=== PATIENT | female | born 1990 | race Caucasian/White ===

== ENCOUNTER 2018-05-24 11:21 | Emergency (ER) | payer BC ==
[2018-05-24] MEDS ORDERED: Ondansetron 4 MG/2 ML SDV IVPUSH ONE ×2 (12:24→14:52)
[2018-05-24] MEDS ORDERED: Sodium Chloride 0.9% 1,000 ML IV ONE ×2 (12:24→13:53)
[2018-05-24] MEDS ORDERED: Sodium Chloride 0.9% 10 ML Syringe FLUSH PRN (12:24)
[2018-05-24] MEDS ORDERED: Famotidine 20 MG/2 ML SDV IVPUSH ONE (12:32)
[2018-05-24] MEDS ORDERED: Alum Hydrox/Mag Hydrox/Simeth 30 ML, Lidocaine 2% 15 ML PO ONE ×2 (12:32)
--- NOTE | 2018-05-24 12:37 | EDM.PDOC ---
ED HPI GENERAL MEDICAL PROBLEM - General Chief Complaint: Gastrointestinal Problem Stated Complaint: VOMITING AND CHILLS Time Seen by Provider: 05/24/18 12:16 Source of Information: Reports: Patient History Limitations: Reports: No Limitations - History of Present Illness INITIAL COMMENTS - FREE TEXT/NARRATIVE: 28-year-old female presents for evaluation and treatment of nausea, vomiting and chills. Reports symptoms started last night. She said at first she felt like she had reflux. Reports that she was burping. She then appreciated burning to her esophagus and again vomiting. She states that she took a Prilosec went to bed which seemed to help with her symptoms. She reports morning she was very hot to touch. She did not take her temperature but states she felt chilled and continued to vomit. She has also had about 2 episodes of nonbloody loose stools today. She is having some abdominal cramping across her upper midabdomen. States that she cannot keep down any foods or fluids. She denies any ear pain, headache or sore throat. States that she was coughing yesterday due to all the vomiting. She denies any recent travel. No ill contacts. No antibiotics recently. LMP was several years ago. Reports that she has the Mirena IUD. Abdomen Pain Score (Numeric/FACES): 1 - Related Data Allergies Allergy/AdvReac Type Severity Reaction Status Date / Time azithromycin [From Zithromax] Allergy Vomiting Verified 05/24/18 11:42 fluoxetine HCl [From Prozac] Allergy Airway Verified 05/24/18 11:42 Tightness flu shot Allergy Airway Uncoded 05/24/18 11:42 Tightness Home Meds: Home Meds ZOLMitriptan [Zomig] 5 mg PO DAILY PRN 09/22/14 [History] ALPRAZolam [Alprazolam] 0.25 mg PO Q6H PRN 11/11/16 [History] Levonorgestrel [Mirena] 1 each IY ASDIRECTED 11/11/16 [History] Magnesium Oxide 250 mg PO DAILY #7 tablet 05/24/18 [Rx] Potassium Chloride [Klor-Con M20] 20 meq PO DAILY #7 tab.er 05/24/18 [Rx] traZODone HCl [Trazodone HCl] 100 mg PO BEDTIME 05/24/18 [History] Past Medical History - Past Health History Medical/Surgical History: Denies Medical/Surgical History Genitourinary History: Reports: Renal Calculus Neurological History: Reports: Migraines Psychiatric History: Reports: Anxiety - Past Surgical History GI Surgical History: Reports: Appendectomy Social & Family History - Family History Family Medical History: Noncontributory Neurological: Reports: Migraines - Tobacco Use Smoking Status *Q: Never Smoker - Caffeine Use Caffeine Use: Reports: None - Recreational Drug Use Recreational Drug Use: No - Living Situation & Occupation Living situation: Reports: Single, with Significant Other Occupation: Employed ED ROS GENERAL - Review of Systems Review Of Systems: See Below Constitutional: Reports: Fever, Chills, Malaise HEENT: Denies: Ear Pain, Throat Pain Respiratory: Reports: Cough GI/Abdominal: Reports: Abdominal Pain, Diarrhea (x2), Nausea, Vomiting. Denies : Bloody Stool : Denies: Dysuria Musculoskeletal: Denies: Back Pain ED EXAM, GI/ABD - Physical Exam Exam: See Below Exam Limited By: No Limitations General Appearance: Alert, WD/WN, No Apparent Distress Ears: Normal External Exam Nose: Normal Inspection Throat/Mouth: Normal Inspection, Normal Lips, Normal Voice, No Airway Compromise Respiratory/Chest: No Respiratory Distress, Lungs Clear, Normal Breath Sounds Cardiovascular: Normal Peripheral Pulses, Regular Rate, Rhythm, No Murmur GI/Abdominal Exam: Normal Bowel Sounds, Soft, Non-Tender, No Distention Neurological: Alert, Oriented, Normal Cognition Psychiatric: Normal Affect, Normal Mood Skin Exam: Warm, Dry, Normal Color Course - Vital Signs Last Recorded V/S: Last Vital Signs Temp 97.1 F 05/24/18 11:39 Pulse 86 05/24/18 11:39 Resp 16 05/24/18 17:30 BP 118/86 05/24/18 17:30 Pulse Ox 97 05/24/18 17:30 - Orders/Labs/Meds Orders: Active Orders 24 hr Category Date Time Status Peripheral IV Care [RC] . DIRECTED Care 05/24/18 12:24 Active DRUG SCREEN, URINE [URCHEM] Stat Lab 05/24/18 13:48 Ordered HEPATITIS PANEL (4) [REF] Stat Lab 05/24/18 14:12 Received UA W/MICROSCOPIC [URIN] Stat Lab 05/24/18 13:53 Ordered Peripheral IV Insertion Adult [OM.PC] Routine Oth 05/24/18 12:23 Ordered Labs: Laboratory Tests 05/24/18 05/24/18 05/24/18 Range/Units 12:36 12:36 12:36 WBC 5.02 (3.98-10.04) K/mm3 RBC 3.99 (3.98-5.22) M/mm3 Hgb 15.1 (11.2-15.7) gm/L Hct 42.0 (34.1-44.9) % MCV 105.3 H (79.4-94.8) fl MCH 37.8 H (25.6-32.2) pg MCHC 36.0 H (32.2-35.5) g/dl RDW Std Deviation 48.7 H (36.4-46.3) fL Plt Count 156 L (182-369) K/mm3 MPV 11.1 (9.4-12.3) fl Neut % (Auto) 78.4 H (34.0-71.1) % Lymph % (Auto) 9.6 L (19.3-51.7) % [place] % (Auto) 11.2 (4.7-12.5) % Eos % (Auto) 0.2 L (0.7-5.8) Baso % (Auto) 0.6 (0.1-1.2) % Neut # (Auto) 3.94 (1.56-6.13) K/mm3 Lymph # (Auto) 0.48 L (1.18-3.74) K/mm3 [place] # (Auto) 0.56 H (0.24-0.36) K/mm3 Eos # (Auto) 0.01 L (0.04-0.36) K/mm3 Baso # (Auto) 0.03 (0.01-0.08) K/mm3 Manual Slide Review Abnormal smear Sodium 138 (136-145) mEq/L Potassium 2.4 L* (3.5-5.1) mEq/L Chloride 94 L (98-107) mEq/L Carbon Dioxide 29 (21-32) mEq/L Anion Gap 17.4 H (5-15) BUN 8 (7-18) mg/dL Creatinine 0.8 (0.55-1.02) mg/dL Est Cr Clr Drug Dosing 103.01 mL/min Estimated GFR (MDRD) > 60 (>60) mL/min BUN/Creatinine Ratio 10.0 L (14-18) Glucose 118 H (74-106) mg/dL Calcium 9.7 (8.5-10.1) mg/dL Magnesium (1.8-2.4) mg/dl Total Bilirubin 3.0 H (0.2-1.0) mg/dL AST 362 H (15-37) U/L ALT 156 H (14-59) U/L Alkaline Phosphatase 119 H (46-116) U/L C-Reactive Protein (<1.0) mg/dL Total Protein 7.7 (6.4-8.2) g/dl Albumin 4.2 (3.4-5.0) g/dl Globulin 3.5 gm/dL Albumin/Globulin Ratio 1.2 (1-2) HCG, Qual Negative (NEGATIVE) Urine Color (Yellow) Urine Appearance (Clear) Urine pH (5.0-8.0) Ur Specific [place] (1.005-1.030) Urine Protein (Negative) Urine Glucose (UA) (Negative) Urine Ketones (Negative) Urine Occult Blood (Negative) Urine Nitrite (Negative) Urine Bilirubin (Negative) Urine Urobilinogen (0.2-1.0) Ur Leukocyte Esterase (Negative) Urine RBC (0-5) /hpf Urine WBC (0-5) /hpf Ur Epithelial Cells (0-5) /hpf Urine Bacteria (FEW) /hpf Urine Mucus (FEW) /hpf Urine Opiates Screen (NEGATIVE) Ur Buprenorphine Scrn (NEGATIVE) Ur Oxycodone Screen (NEGATIVE) Urine Methadone Screen (NEGATIVE) Ur Propoxyphene Screen (NEGATIVE) Ur Barbiturates Screen (NEGATIVE) Ur Tricyclics Screen (NEGATIVE) Ur Phencyclidine Scrn (NEGATIVE) Ur Amphetamine Screen (NEGATIVE) U Methamphetamines Scrn (NEGATIVE) U Benzodiazepines Scrn (NEGATIVE) U Cocaine Metab Screen (NEGATIVE) U Marijuana (THC) Screen (NEGATIVE) Ethyl Alcohol (0.00) gm% 05/24/18 05/24/18 05/24/18 Range/Units 12:36 12:36 12:36 WBC (3.98-10.04) K/mm3 RBC (3.98-5.22) M/mm3 Hgb (11.2-15.7) gm/L Hct (34.1-44.9) % MCV (79.4-94.8) fl MCH (25.6-32.2) pg MCHC (32.2-35.5) g/dl RDW Std Deviation (36.4-46.3) fL Plt Count (182-369) K/mm3 MPV (9.4-12.3) fl Neut % (Auto) (34.0-71.1) % Lymph % (Auto) (19.3-51.7) % [place] % (Auto) (4.7-12.5) % Eos % (Auto) (0.7-5.8) Baso % (Auto) (0.1-1.2) % Neut # (Auto) (1.56-6.13) K/mm3 Lymph # (Auto) (1.18-3.74) K/mm3 [place] # (Auto) (0.24-0.36) K/mm3 Eos # (Auto) (0.04-0.36) K/mm3 Baso # (Auto) (0.01-0.08) K/mm3 Manual Slide Review Sodium (136-145) mEq/L Potassium 3.3 L (3.5-5.1) mEq/L Chloride (98-107) mEq/L Carbon Dioxide (21-32) mEq/L Anion Gap (5-15) BUN (7-18) mg/dL Creatinine (0.55-1.02) mg/dL Est Cr Clr Drug Dosing mL/min Estimated GFR (MDRD) (>60) mL/min BUN/Creatinine Ratio (14-18) Glucose (74-106) mg/dL Calcium (8.5-10.1) mg/dL Magnesium 1.5 L (1.8-2.4) mg/dl Total Bilirubin (0.2-1.0) mg/dL AST (15-37) U/L ALT (14-59) U/L Alkaline Phosphatase (46-116) U/L C-Reactive Protein (<1.0) mg/dL Total Protein (6.4-8.2) g/dl Albumin (3.4-5.0) g/dl Globulin gm/dL Albumin/Globulin Ratio (1-2) HCG, Qual (NEGATIVE) Urine Color (Yellow) Urine Appearance (Clear) Urine pH (5.0-8.0) Ur Specific [place] (1.005-1.030) Urine Protein (Negative) Urine Glucose (UA) (Negative) Urine Ketones (Negative) Urine Occult Blood (Negative) Urine Nitrite (Negative) Urine Bilirubin (Negative) Urine Urobilinogen (0.2-1.0) Ur Leukocyte Esterase (Negative) Urine RBC (0-5) /hpf Urine WBC (0-5) /hpf Ur Epithelial Cells (0-5) /hpf Urine Bacteria (FEW) /hpf Urine Mucus (FEW) /hpf Urine Opiates Screen (NEGATIVE) Ur Buprenorphine Scrn (NEGATIVE) Ur Oxycodone Screen (NEGATIVE) Urine Methadone Screen (NEGATIVE) Ur Propoxyphene Screen (NEGATIVE) Ur Barbiturates Screen (NEGATIVE) Ur Tricyclics Screen (NEGATIVE) Ur Phencyclidine Scrn (NEGATIVE) Ur Amphetamine Screen (NEGATIVE) U Methamphetamines Scrn (NEGATIVE) U Benzodiazepines Scrn (NEGATIVE) U Cocaine Metab Screen (NEGATIVE) U Marijuana (THC) Screen (NEGATIVE) Ethyl Alcohol 0.00 (0.00) gm% 05/24/18 05/24/18 05/24/18 Range/Units 12:55 13:48 13:53 WBC (3.98-10.04) K/mm3 RBC (3.98-5.22) M/mm3 Hgb (11.2-15.7) gm/L Hct (34.1-44.9) % MCV (79.4-94.8) fl MCH (25.6-32.2) pg MCHC (32.2-35.5) g/dl RDW Std Deviation (36.4-46.3) fL Plt Count (182-369) K/mm3 MPV (9.4-12.3) fl Neut % (Auto) (34.0-71.1) % Lymph % (Auto) (19.3-51.7) % [place] % (Auto) (4.7-12.5) % Eos % (Auto) (0.7-5.8) Baso % (Auto) (0.1-1.2) % Neut # (Auto) (1.56-6.13) K/mm3 Lymph # (Auto) (1.18-3.74) K/mm3 [place] # (Auto) (0.24-0.36) K/mm3 Eos # (Auto) (0.04-0.36) K/mm3 Baso # (Auto) (0.01-0.08) K/mm3 Manual Slide Review Sodium (136-145) mEq/L Potassium (3.5-5.1) mEq/L Chloride (98-107) mEq/L Carbon Dioxide (21-32) mEq/L Anion Gap (5-15) BUN (7-18) mg/dL Creatinine (0.55-1.02) mg/dL Est Cr Clr Drug Dosing mL/min Estimated GFR (MDRD) (>60) mL/min BUN/Creatinine Ratio (14-18) Glucose (74-106) mg/dL Calcium (8.5-10.1) mg/dL Magnesium (1.8-2.4) mg/dl Total Bilirubin (0.2-1.0) mg/dL AST (15-37) U/L ALT (14-59) U/L Alkaline Phosphatase (46-116) U/L C-Reactive Protein < 0.2 (<1.0) mg/dL Total Protein (6.4-8.2) g/dl Albumin (3.4-5.0) g/dl Globulin gm/dL Albumin/Globulin Ratio (1-2) HCG, Qual (NEGATIVE) Urine Color Yellow (Yellow) Urine Appearance Clear (Clear) Urine pH 7.5 (5.0-8.0) Ur Specific [place] 1.010 (1.005-1.030) Urine Protein Negative (Negative) Urine Glucose (UA) Negative (Negative) Urine Ketones Negative (Negative) Urine Occult Blood Negative (Negative) Urine Nitrite Negative (Negative) Urine Bilirubin Negative (Negative) Urine Urobilinogen 2.0 H (0.2-1.0) Ur Leukocyte Esterase Negative (Negative) Urine RBC Not seen (0-5) /hpf Urine WBC 0-5 (0-5) /hpf Ur Epithelial Cells 0-5 (0-5) /hpf Urine Bacteria Few (FEW) /hpf Urine Mucus Not seen (FEW) /hpf Urine Opiates Screen Negative (NEGATIVE) Ur Buprenorphine Scrn Negative (NEGATIVE) Ur Oxycodone Screen Negative (NEGATIVE) Urine Methadone Screen Negative (NEGATIVE) Ur Propoxyphene Screen Negative (NEGATIVE) Ur Barbiturates Screen Negative (NEGATIVE) Ur Tricyclics Screen Negative (NEGATIVE) Ur Phencyclidine Scrn Negative (NEGATIVE) Ur Amphetamine Screen Negative (NEGATIVE) U Methamphetamines Scrn Negative (NEGATIVE) U Benzodiazepines Scrn Presumptive positive H (NEGATIVE) U Cocaine Metab Screen Negative (NEGATIVE) U Marijuana (THC) Screen Presumptive positive H (NEGATIVE) Ethyl Alcohol (0.00) gm% Meds: Medications Discontinued Medications Generic Name Dose Route Start Last Admin Trade Name Freq PRN Reason Stop Dose Admin Al Hydroxide/Mg Hydroxide 30 0 ml 05/24/18 12:32 05/24/18 12:43 ml/ Lidocaine HCl 15 ml PO 05/24/18 12:33 45 ml ONETIME ONE Administration Famotidine 20 mg 05/24/18 12:32 05/24/18 12:43 Pepcid IVPUSH 05/24/18 12:33 20 mg ONETIME ONE Administration Sodium Chloride 1,000 mls @ 999 mls/hr 05/24/18 12:24 05/24/18 12:42 Normal Saline IV 05/24/18 13:24 999 mls/hr ONETIME ONE Administration Magnesium Sulfate 2 gm/ Premix 50 mls @ 50 mls/hr 05/24/18 13:40 05/24/18 14: 07 IV 05/24/18 14:39 50 mls/hr ONETIME ONE Administration Sodium Chloride 1,000 mls @ 999 mls/hr 05/24/18 13:53 05/24/18 14:07 Normal Saline IV 05/24/18 14:53 999 mls/hr ONETIME ONE Administration Potassium Chloride 10 meq/ 100 mls @ 100 mls/hr 05/24/18 14:30 05/24/18 14:47 Premix IV 100 mls/hr ASDIRECTED JESU Administration Ondansetron HCl 4 mg 05/24/18 12:24 05/24/18 12:43 Zofran IVPUSH 05/24/18 12:25 4 mg ONETIME ONE Administration Ondansetron HCl 4 mg 05/24/18 14:52 05/24/18 15:12 Zofran IVPUSH 05/24/18 14:53 4 mg ONETIME ONE Administration Potassium Chloride 40 meq 05/24/18 13:53 05/24/18 14:08 Klor-Con M20 PO 05/24/18 13:54 40 meq ONETIME ONE Administration Sodium Chloride 10 ml 05/24/18 12:24 05/24/18 12:44 Saline Flush FLUSH 10 ml ASDIRECTED PRN Administration Keep Vein Open - Re-Assessments/Exams Free Text/Narrative Re-Assessment/Exam: 05/24/18 14:01 Reviewed the labs with the patient. She states she occasionally drinks alcohol and she last had some on Thursday night. She denies taking excessive amounts of Tylenol. Denies any IV drug abuse or any known history of any hepatitis. Parents this point she reports her nausea has improved and she is feeling better. Will get her second liter of fluids, IV magnesium and some by mouth and IV potassium. We'll then reassess and see if she is able to go home at that time. I suspect that she is drinking alcohol and is not being honest with me about her alcohol consumption. 05/24/18 17:17 Repeat potassium has returned at 3.3 Will discharge home today with close follow-up in the clinic. Recommend clear fluids and a bland diet. Avoid tylenol. Avoid alcohol. Discharge instructions as documented. Departure - Departure Time of Disposition: 17:18 Disposition: Home, Self-Care 01 Condition: Fair Clinical Impression: Hypomagnesemia, Hypokalemia, Elevated transaminase level - Discharge Information *PRESCRIPTION DRUG MONITORING PROGRAM REVIEWED*: No *COPY OF PRESCRIPTION DRUG MONITORING REPORT IN PATIENT ANASTASIA: No Prescriptions: Magnesium Oxide 250 mg PO DAILY #7 tablet Potassium Chloride [Klor-Con M20] 20 meq PO DAILY #7 tab.er Instructions: Hypomagnesemia, Hypokalemia Referrals: Simin Paiz NP [Primary Care Provider] - Forms: ED Department Discharge Additional Instructions: Take your Zofran you have at home as prescribed. Recommend clear fluids and a bland diet as tolerated. Patrick Diet recommendations include bread, rice, applesauce, toast, bananas, yogurt, etc. Take the magnesium as prescribed. you were given both magnesium and potassium in the ED tonight. You may start this prescription tomorrow. Magnesium 1 tab daily. Potassium 1 tab daily. Follow up with your primary care provider the end of this week or early next week for rec of your symptoms, electrolytes and liver enzymes. Avoid Tylenol. Avoid alcohol. Please return to the ER if your symptoms change or worsen. - My Orders Last 24 Hours: My Active Orders 05/24/18 12:23 Peripheral IV Insertion Adult [OM.PC] Routine 05/24/18 12:24 Peripheral IV Care [RC] . DIRECTED 05/24/18 13:48 DRUG SCREEN, URINE [URCHEM] Stat 05/24/18 13:53 UA W/MICROSCOPIC [URIN] Stat 05/24/18 14:12 HEPATITIS PANEL (4) [REF] Stat - Assessment/Plan Last 24 Hours: My Active Orders 05/24/18 12:23 Peripheral IV Insertion Adult [OM.PC] Routine 05/24/18 12:24 Peripheral IV Care [RC] . DIRECTED 05/24/18 13:48 DRUG SCREEN, URINE [URCHEM] Stat 05/24/18 13:53 UA W/MICROSCOPIC [URIN] Stat 05/24/18 14:12 HEPATITIS PANEL (4) [REF] Stat
[2018-05-24] MEDS ORDERED: Magnesium Sulfate/Water 2 GM in Premix Bag 1 BAG IV ONE (13:40)
[2018-05-24] MEDS ORDERED: Potassium Chloride 20 MEQ Tab.ER PO ONE (13:53)
[2018-05-24] MEDS ORDERED: Potassium Chloride 10 MEQ in Premix Bag 1 BAG IV SCH (14:30)
[2018-05-24 17:33] VITALS: BP 118/86
== END 2018-05-24 17:40 | disposition home or self-care (01) ==
LOC: JD.ED 11:21
DX: E83.42 Hypomagnesemia (principal); E87.6 Hypokalemia; R79.89 Other specified abnormal findings of blood chemistry; Z79.899 Other long term (current) drug therapy; Z88.7 Allergy status to serum and vaccine; Z88.8 Allergy status to other drugs, medicaments and biological substances; Z88.1 Allergy status to other antibiotic agents
CPT/HCPCS: 36415; 80053; 80074; 80306; 81001; 83735; 84132; 84703; 85025; 86140; 96361; 96365; 96367; 96375; 96376; 99284; A9270; G0480; J2405; J3480; J3490; J7040; J7050; J3475

== ENCOUNTER 2019-04-02 20:12 | Emergency (ER) | payer BC ==
--- NOTE | 2019-04-02 20:59 | EDM.PDOC ---
ED HPI GENERAL MEDICAL PROBLEM - General Chief Complaint: ENT Problem Stated Complaint: EAR PAIN Time Seen by Provider: 04/02/19 20:40 Source of Information: Reports: Patient, RN Notes Reviewed History Limitations: Reports: No Limitations - History of Present Illness INITIAL COMMENTS - FREE TEXT/NARRATIVE: Patient is a 28 year old female who presents to the ED for the evaluation of bilateral ear fullness. She notes this to have started at around 4 PM today. She states that her left ear feels more full than the right. She states that it felt as if she was listening through a fish bowl. She notes there was some hot/itchy feeling inside her head with the increased pressure. She also has developed a scratchy throat. She denies any cough, fever/chills, or shortness of breath. Bilateral Ear Pain Score (Numeric/FACES): 4 - Related Data Allergies Allergy/AdvReac Type Severity Reaction Status Date / Time azithromycin [From Zithromax] Allergy Vomiting Verified 05/24/18 11:42 fluoxetine HCl [From Prozac] Allergy Airway Verified 05/24/18 11:42 Tightness flu shot Allergy Airway Uncoded 05/24/18 11:42 Tightness Home Meds: Home Meds ZOLMitriptan [Zomig] 5 mg PO DAILY PRN 09/22/14 [History] ALPRAZolam [Alprazolam] 0.25 mg PO Q6H PRN 11/11/16 [History] Levonorgestrel [Mirena] 1 each IY ASDIRECTED 11/11/16 [History] Magnesium Oxide 250 mg PO DAILY #7 tablet 05/24/18 [Rx] Potassium Chloride [Klor-Con M20] 20 meq PO DAILY #7 tab.er 05/24/18 [Rx] traZODone HCl [Trazodone HCl] 100 mg PO BEDTIME 05/24/18 [History] Past Medical History - Past Health History Medical/Surgical History: Denies Medical/Surgical History Genitourinary History: Reports: Renal Calculus 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 Uterine Bleeding Neurological History: Reports: Migraines Psychiatric History: Reports: Anxiety - Past Surgical History GI Surgical History: Reports: Appendectomy Social & Family History - Family History Family Medical History: Noncontributory Neurological: Reports: Migraines - Tobacco Use Smoking Status *Q: Current Every Day Smoker Years of Tobacco use: 8 Packs/Tins Daily: 0.5 - Caffeine Use Caffeine Use: Reports: None - Living Situation & Occupation Living situation: Reports: Single, with Significant Other Occupation: Employed ED ROS ENT - Review of Systems Review Of Systems: See Below Constitutional: Denies: Fever, Chills HEENT: Reports: Ear Pain (bilateral ear fullness), Throat Pain (scratchy throat) . Denies: Sinus Problem Respiratory: Reports: No Symptoms Cardiovascular: Reports: No Symptoms Endocrine: Reports: No Symptoms GI/Abdominal: Reports: No Symptoms : Reports: No Symptoms Musculoskeletal: Reports: No Symptoms Skin: Reports: No Symptoms Neurological: Reports: No Symptoms Psychiatric: Reports: No Symptoms Hematologic/Lymphatic: Reports: No Symptoms ED EXAM, ENT - Physical Exam Exam: See Below Exam Limited By: No Limitations General Appearance: Alert, WD/WN, No Apparent Distress Ears: Normal External Exam, Normal Canal, Hearing Grossly Normal, Normal TMs Mouth/Throat: Normal Inspection, Normal Gums, Normal Lips, Normal Oropharynx, Normal Teeth Head: Atraumatic, Normocephalic Neck: Normal Inspection, Supple, Non-Tender, Full Range of Motion Respiratory/Chest: No Respiratory Distress, Lungs Clear, Normal Breath Sounds, No Accessory Muscle Use, Chest Non-Tender Cardiovascular: Normal Peripheral Pulses, Regular Rate, Rhythm, No Murmur Extremities: Normal Inspection, Normal Capillary Refill Neurological: Alert, Oriented, Normal Cognition, No Motor/Sensory Deficits Psychiatric: Normal Affect, Normal Mood Skin: Warm, Dry, Intact, Normal Color, No Rash Course - Vital Signs Last Recorded V/S: Last Vital Signs Temp 99.0 F 04/02/19 20:35 Pulse 109 H 04/02/19 20:35 Resp 16 04/02/19 20:35 BP Pulse Ox 98 04/02/19 20:35 - Re-Assessments/Exams Free Text/Narrative Re-Assessment/Exam: 04/02/19 21:10 Patient presents to the ED for evaluation of bilateral ear fullness. Her exam is most consistent with a viral upper respiratory infection at this time, as there is no sign of any sort of bacterial infection. Have given general recommendations and will discharge home. Departure - Departure Time of Disposition: 21:10 Disposition: Home, Self-Care 01 Condition: Fair Clinical Impression: Viral upper respiratory infection - Discharge Information *PRESCRIPTION DRUG MONITORING PROGRAM REVIEWED*: No *COPY OF PRESCRIPTION DRUG MONITORING REPORT IN PATIENT ANASTASIA: No Instructions: Viral Respiratory Infection, [id number] Referrals: Simin Torre NP [Primary Care Provider] - Forms: ED Department Discharge, ED Return to Work/School Form Additional Instructions: You have been evaluated in the ED today for your ear fullness and scratchy throat. This is likely a viral illness in etiology. Please increase your fluid intake. Get plenty of rest as well. You should feel better in a few days. Recommend that you take some [id number] nasal decongestants, cough/cold remedies to combat this. Medicines like NyQuil, DayQuil, phenylephrine and other sinus decongestants are adequate. If your symptoms are not better in one week's time recommend that you follow up in a clinic or your primary care provider. Please return to the ED if your symptoms change or worsen.
== END 2019-04-02 21:30 | disposition home or self-care (01) ==
LOC: JD.ED 20:12
DX: J06.9 Acute upper respiratory infection, unspecified (principal); F41.9 Anxiety disorder, unspecified; F17.210 Nicotine dependence, cigarettes, uncomplicated; Z88.1 Allergy status to other antibiotic agents; Z88.8 Allergy status to other drugs, medicaments and biological substances; Z88.7 Allergy status to serum and vaccine; Z79.899 Other long term (current) drug therapy
CPT/HCPCS: 99282

== ENCOUNTER 2025-03-24 20:03 | Emergency (ER) | payer BC ==
[2025-03-24 20:11] VITALS: BP 145/107; PULSE 118
[2025-03-24 20:50] LABS: BASOPHILS ABSOLUTE AUTO 0.1 K/mm3 (0.0-0.2); BASOPHILS PERCENT AUTO 0.7 % (0.0-1.0); EOSINOPHILS PERCENT AUTO 0.3 % (0.0-6.0); HEMOGLOBIN 17.5 gm/dl (12.0-16.0); IMMATURE GRAN ABSOLUTE AUTO 0.01 K/mm3 (0.00-0.05); IMMATURE GRAN PERCENT AUTO 0.1 % (0.0-0.4); LYMPHOCYTES ABSOLUTE AUTO 2.2 K/mm3 (1.0-4.8); LYMPHOCYTES PERCENT AUTO 29.2 % (24.0-44.0); MEAN CORPUSCULAR HEMOGLOBIN 34.4 pg (28.0-32.0); MEAN CORPUSCULAR HGB CONC 35.7 g/dl (32.0-36.0); MEAN CORPUSCULAR VOLUME 96.3 fl (83.0-99.0); MEAN PLATELET VOLUME 9.4 fl (9.4-12.3); MONOCYTES ABSOLUTE AUTO 0.6 K/mm3 (0.0-0.8); MONOCYTES PERCENT AUTO 7.2 % (0.0-8.0); NEUTROPHILS ABSOLUTE AUTO 4.8 K/mm3 (1.8-7.7); NEUTROPHILS PERCENT AUTO 62.5 % (41.0-71.0); PLATELET COUNT,PLT 359 K/mm3 (150-400); RED BLOOD CELL COUNT 5.09 M/mm3 (4.10-5.30); WHITE BLOOD CELL COUNT,WBC 7.67 K/mm3 (3.9-11.3)
[2025-03-24] MEDS: Sodium Chloride 0.9% 1,000 ML IV ONE ×2 (20:57→23:17)
[2025-03-24] MEDS: diphenhydrAMINE 50 MG/ML SDV IVPUSH ONE (20:57)
[2025-03-24] MEDS: droPERidol 2.5 MG/ML SDV IV ONE (20:57)
[2025-03-24] MEDS: Sodium Chloride 0.9% 10 ML Syringe FLUSH PRN (21:09)
[2025-03-24 21:16] LABS: A/G RATIO 1.1 (1-2); ALBUMIN 4.6 g/dl (3.4-5.0); BILIRUBIN TOTAL 0.3 mg/dL (0.2-1.0); BUN/CREATININE RATIO 5.7 (14-18); CALCIUM 9.9 mg/dL (8.5-10.1); CREATININE 0.7 mg/dL (0.55-1.02); EST CRCL DRUG DOSING (CG) 112.2 mL/min; ETHANOL BLOOD MEDICAL 0.32 gm% (0.00); MAGNESIUM 2.2 mg/dL (1.8-2.4)
[2025-03-24 23:34] LABS: APPEARANCE,URINE SLT CLOUDY (Clear); BILIRUBIN,URINE NEGATIVE (Negative); COLOR,URINE YELLOW (Yellow); GLUCOSE,URINE NEGATIVE (Negative); KETONES,URINE TRACE (Negative); LEUKOCYTE ESTERASE,URINE NEGATIVE (Negative); NITRITE,URINE NEGATIVE (Negative); OCCULT BLOOD,URINE TRACE-INTACT (Negative); PH,URINE 7.5 (5.0-8.0); PROTEIN,URINE TRACE (Negative)
[2025-03-24 23:44] LABS: BARBITURATE SCREEN,URINE NEGATIVE (CUTOFF=200); BENZODIAZEPINES SCREEN,URINE NEGATIVE (CUTOFF=150); BUPRENORPHINE SCREEN,URINE NEGATIVE (CUTOFF=10); METHADONE SCREEN, URINE NEGATIVE (CUTOFF=200); METHAMPHETAMINES SCREEN, URINE NEGATIVE (CUTOFF=500); OXYCODONE SCREEN,URINE NEGATIVE (CUT0FF=100); THC SCREEN,URINE 20 NG/ML PRESUMPTIVE POSITIVE (CUTOFF=50)
[2025-03-24 23:45] LABS: RBC,URINE 0-5 /hpf (0-5); WBC,URINE 0-5 /hpf (0-5)
[2025-03-24 23:46] LABS: BACTERIA,URINE MODERATE /hpf (FEW); HYALINE CASTS,URINE 0-5 /lpf (0-5); MUCUS,URINE RARE /hpf (FEW); SQUAMOUS EPITHELIAL CELLS,UR 0-5 /hpf (0-5)
[2025-03-24 23:50] LABS: AMPHETAMINES SCREEN, URINE NEGATIVE (CUTOFF=500)
== END 2025-03-25 00:48 | disposition home or self-care (01) ==
LOC: JD.ED 20:03
DX: R51.9 Headache, unspecified (principal); F41.9 Anxiety disorder, unspecified; F10.90 Alcohol use, unspecified, uncomplicated; Z88.1 Allergy status to other antibiotic agents; Z88.8 Allergy status to other drugs, medicaments and biological substances; Z79.899 Other long term (current) drug therapy; Z90.49 Acquired absence of other specified parts of digestive tract
CPT/HCPCS: 36415; 70450; 71045; 80053; 80306; 80307; 81001; 82550; 83735; 84703; 85025; 87040; 93005; 96361; 96374; 96375; 99285; J1200; J1790; J7030; 93010; 99283